=== PATIENT | male | born 1985 | race Caucasian/White ===

== ENCOUNTER 2021-11-04 19:35 | Emergency (ER) ==
[~2021-11-04] VITALS: Ht 167.6 cm; Wt 61.4 kg
== END 2021-11-04 20:05 | disposition home or self-care (01) ==
LOC: COL.ER 19:35
DX: R40.4 Transient alteration of awareness (principal); Z28.310 Unvaccinated for COVID-19; F17.210 Nicotine dependence, cigarettes, uncomplicated

== ENCOUNTER 2023-10-17 16:09 | Emergency (ER) | payer OTHER ==
[~2023-10-17] VITALS: Ht 165.1 cm; Wt 54.5 kg
[2023-10-17 16:24] VITALS: TEMP 98.6
[2023-10-17] MEDS ORDERED: PERCOCET 325 MG1 TA2 PO (16:56)
[2023-10-17] MEDS ORDERED: Home oxyCODONE/Acetaminophen 5/325 MG #4 TAB/PACK PO ONE (17:00)
[2023-10-17 17:06] VITALS: BP 127/77; PULSE 107
== END 2023-10-17 17:10 | disposition home or self-care (01) ==
LOC: COL.ER 16:09
DX: M48.56XA Collapsed vertebra, not elsewhere classified, lumbar region, initial encounter for fracture (principal); F17.290 Nicotine dependence, other tobacco product, uncomplicated

== ENCOUNTER 2023-10-23 13:42 | Emergency (ER) | payer SELFPAY ==
[~2023-10-23] VITALS: Ht 165.1 cm; Wt 59.1 kg
[~2023-10-23 13:42] MED LIST: PERCOCET 325 MG1 TA2 PO
[2023-10-23 13:56] VITALS: BP 118/81; TEMP 99.3
[2023-10-23] MEDS ORDERED: FLEXERIL 1010 MG/TAB PO (15:21)
[2023-10-23] MEDS ORDERED: PERCOCET 325 MG1 TAB PO (15:21)
[2023-10-23 15:53] VITALS: PULSE 100
== END 2023-10-23 15:53 | disposition home or self-care (01) ==
LOC: COL.ER 13:42
DX: M54.50 Low back pain, unspecified (principal); Z87.81 Personal history of (healed) traumatic fracture

== ENCOUNTER 2023-10-26 12:08 | Emergency (ER) | payer OTHER ==
[~2023-10-26] VITALS: Ht 165.1 cm; Wt 56.8 kg
[~2023-10-26 12:08] MED LIST changes: +FLEXERIL 1010 MG/TAB PO; +PERCOCET 325 MG1 TAB PO
[2023-10-26 12:15] VITALS: BP 121/74; TEMP 98.4
[2023-10-26] MEDS ORDERED: PERCOCET 325 MG1 TA2 PO (14:41)
[2023-10-26 14:53] VITALS: PULSE 98
== END 2023-10-26 14:54 | disposition home or self-care (01) ==
LOC: COL.ER 12:08
DX: G89.29 Other chronic pain (principal); M54.9 Dorsalgia, unspecified

== ENCOUNTER 2023-11-21 14:12 | Emergency (ER) | payer OTHER ==
[2023-11-21 14:34] VITALS: TEMP 98.6
[2023-11-21] MEDS ORDERED: Ondansetron 4 MG/2 ML VIAL IV ONE (15:30)
[2023-11-21] MEDS ORDERED: Morphine 4 MG/ML VIAL IV ONE ×2 (15:30→16:15)
[2023-11-21] MEDS ORDERED: LR 1,000 ML IV ONE (15:30)
[2023-11-21 15:40] LABS: BASO % 0.4 % (0.0-2.0); EOS % 0.4 % (0.0-4.0); GRAN # 6.8 K/mm3 (1.4-6.5); GRAN % 74.8 % (42.2-75.2); HEMATOCRIT 48.5 % (42.0-52.0); HEMOGLOBIN 16.5 g/dl (13.5-18.0); LYMPH # 1.9 K/mm3 (1.2-3.4); LYMPH % 20.5 % (20.0-51.0); MEAN CELL VOLUME 87 fl (80.0-100.0); MEAN CORPUSCULAR HEMOGLOBIN 30 pg (27-31); MEAN CORPUSCULAR HGB CONC 34 g/dl (33.0-37.0); MEAN PLATELET VOLUME 8.3 fl (7.4-10.4); MONO # 0.3 K/mm3 (0.1-0.6); MONO % 3.7 % (1.7-9.3); PLATELET COUNT 302 K/mm3 (130-400); RED BLOOD COUNT 5.55 M/mm3 (4.20-5.60); REDCELL DISTRIBUTION WIDTH-CV 14.2 % (11.5-14.5)
[2023-11-21 15:53] LABS: ERYTHROCYTE SEDIMENTATION RATE 51 mm/hr (0-15)
[2023-11-21 16:09] LABS: ALBUMIN 4.4 g/dL (3.5-5.0); BILIRUBIN,TOTAL 0.4 mg/dL (0.2-1.2); C-REACTIVE PROTEIN 0.17 mg/dL (0.00-0.50); CALCIUM 10.4 mg/dL (8.4-10.2); CREATININE, serum 0.78 mg/dL (0.72-1.25); TOTAL PROTEIN 8.5 g/dl (6.2-8.1)
[2023-11-21] MEDS ORDERED: fentaNYL 50 MCG/ML 2 ML VIAL IV ONE (16:15)
[2023-11-21] MEDS ORDERED: HYDROcodone/Acetaminophen 10-325 MG TAB PO ONE (16:15)
[2023-11-21 16:41] VITALS: BP 135/85; PULSE 98
[2023-11-21] MEDS ORDERED: Home HYDROcodone/Acetaminophen 7.5/325 MG #4 TABS/PACK PO ONE (17:00)
== END 2023-11-21 17:07 | disposition home or self-care (01) ==
LOC: COL.ER 14:12
PROVIDERS: Emergency Medicine
DX: M54.50 Low back pain, unspecified (principal); G89.29 Other chronic pain; X50.1XXA Overexertion from prolonged static or awkward postures, initial encounter
CPT/HCPCS: J2270; J2405; J3010; J7120

== ENCOUNTER → 2023-12-06 | Outpatient (CLI) | payer OTHER | LOC: COL.RAD 13:15 | DX: S22.000A Wedge compression fracture of unspecified thoracic vertebra, initial encounter for closed fracture (principal); M79.605 Pain in left leg; X58.XXXA Exposure to other specified factors, initial encounter ==

== ENCOUNTER 2023-12-23 13:18 | Emergency (ER) | payer OTHER ==
[~2023-12-23] VITALS: Ht 165.1 cm; Wt 58.2 kg
[2023-12-23 14:47] LABS: COLLECTION METHOD CLEAN CATCH
[2023-12-23 14:50] LABS: BASO % 0.2 % (0.0-2.0); EOS % 0.1 % (0.0-4.0); GRAN # 10.9 K/mm3 (1.4-6.5); GRAN % 87.4 % (42.2-75.2); HEMATOCRIT 43.9 % (42.0-52.0); LYMPH # 1.3 K/mm3 (1.2-3.4); LYMPH % 10.5 % (20.0-51.0); MEAN CELL VOLUME 88 fl (80.0-100.0); MEAN CORPUSCULAR HEMOGLOBIN 30 pg (27-31); MEAN CORPUSCULAR HGB CONC 34 g/dl (33.0-37.0); MEAN PLATELET VOLUME 8.5 fl (7.4-10.4); MONO # 0.2 K/mm3 (0.1-0.6); MONO % 1.6 % (1.7-9.3); PLATELET COUNT 322 K/mm3 (130-400); RED BLOOD COUNT 4.99 M/mm3 (4.20-5.60); REDCELL DISTRIBUTION WIDTH-CV 14.2 % (11.5-14.5)
[2023-12-23 14:51] LABS: URINE APPEARANCE CLEAR (CLEAR/HAZY); URINE BLOOD NEGATIVE (NEGATIVE); URINE COLOR YELLOW (YELLOW); URINE GLUCOSE NEGATIVE (NEGATIVE); URINE KETONE NEGATIVE (NEGATIVE); URINE NITRATE NEGATIVE (NEGATIVE); URINE PROTEIN(semi-quant) NEGATIVE (NEGATIVE); URINE UROBILINOGEN 0.2 E.U/dL (0.2-1.0)
[2023-12-23 15:14] LABS: ALBUMIN 4.1 g/dL (3.5-5.0); BILIRUBIN,TOTAL 0.4 mg/dL (0.2-1.2); C-REACTIVE PROTEIN 0.58 mg/dL (0.00-0.50); CREATININE, serum 0.77 mg/dL (0.72-1.25); TOTAL PROTEIN 7.8 g/dl (6.2-8.1)
[2023-12-23] MEDS ORDERED: HYDROmorphone 0.5 MG/0.5 ML SYRINGE IV ONE ×2 (15:30→17:00)
[2023-12-23] MEDS ORDERED: NS 1,000 ML IV ONE (15:30)
[2023-12-23] MEDS ORDERED: fentaNYL 50 MCG/ML 2 ML VIAL IV ONE (18:15)
[2023-12-23] MEDS ORDERED: NS 50 ML IV SCH (18:58)
[2023-12-23] MEDS ORDERED: Iohexol 300 - 100 ML VIAL IV ONE (18:58)
[2023-12-23] MEDS ORDERED: Clindamycin 150 MG CAP PO ONE (19:15)
[2023-12-23] MEDS ORDERED: oxyCODONE 5 MG TAB PO ONE (20:30)
[2023-12-24] MEDS ORDERED: HYDROmorphone 0.5 MG/0.5 ML SYRINGE IV PRN (00:45)
[2023-12-24 05:45] VITALS: TEMP 98.5
[2023-12-24 07:50] VITALS: BP 110/83; PULSE 92
== END 2023-12-24 08:00 | disposition short-term general hospital (02) ==
LOC: COL.ER 13:18
PROVIDERS: Nurse Practitioner
DX: T81.41XA Infection following a procedure, superficial incisional surgical site, initial encounter (principal); R10.2 Pelvic and perineal pain; F17.200 Nicotine dependence, unspecified, uncomplicated; Y83.8 Other surgical procedures as the cause of abnormal reaction of the patient, or of later complication, without mention of misadventure at the time of the procedure
CPT/HCPCS: J1171; J3010; J3370; J7030; J7050; Q9967

== ENCOUNTER 2024-01-02 12:20 | Emergency (ER) | payer OTHER ==
[~2024-01-02] VITALS: Ht 165.1 cm; Wt 56.8 kg
[2024-01-02 12:27] VITALS: TEMP 98.2
[2024-01-02] MEDS ORDERED: NS 1,000 ML IV ONE (13:15)
[2024-01-02 13:50] LABS: BASO % 0.2 % (0.0-2.0); EOS % 0.3 % (0.0-4.0); GRAN # 10.6 K/mm3 (1.4-6.5); GRAN % 82.9 % (42.2-75.2); HEMATOCRIT 47.2 % (42.0-52.0); LYMPH # 1.5 K/mm3 (1.2-3.4); MEAN CELL VOLUME 86 fl (80.0-100.0); MEAN CORPUSCULAR HEMOGLOBIN 29 pg (27-31); MEAN CORPUSCULAR HGB CONC 34 g/dl (33.0-37.0); MEAN PLATELET VOLUME 8.3 fl (7.4-10.4); MONO # 0.5 K/mm3 (0.1-0.6); MONO % 4.2 % (1.7-9.3); PLATELET COUNT 343 K/mm3 (130-400); RED BLOOD COUNT 5.46 M/mm3 (4.20-5.60); REDCELL DISTRIBUTION WIDTH-CV 14.1 % (11.5-14.5)
[2024-01-02 14:05] LABS: ERYTHROCYTE SEDIMENTATION RATE 69 mm/hr (0-15)
[2024-01-02 14:13] LABS: ALBUMIN 4.1 g/dL (3.5-5.0); BILIRUBIN,TOTAL 0.5 mg/dL (0.2-1.2); C-REACTIVE PROTEIN 2.92 mg/dL (0.00-0.50); CREATININE, serum 0.8 mg/dL (0.72-1.25); POTASSIUM 4.2 mEq/L (3.5-4.5); TOTAL PROTEIN 8.6 g/dl (6.2-8.1)
[2024-01-02] MEDS ORDERED: Morphine 4 MG/ML VIAL IV ONE (15:15)
[2024-01-02] MEDS ORDERED: PERCOCET 325 MG1 TA2 PO (15:24)
[2024-01-02 15:30] VITALS: BP 138/95; PULSE 110
[2024-01-02] MEDS ORDERED: Ondansetron 4 MG/2 ML VIAL IV ONE (15:30)
== END 2024-01-02 15:30 | disposition home or self-care (01) ==
LOC: COL.ER 12:20
PROVIDERS: Personal Emergency Response Attendant
DX: G89.18 Other acute postprocedural pain (principal)
CPT/HCPCS: J2270; J2405; J7030